=== PATIENT | female | born 1950 | race Caucasian/White ===

== ENCOUNTER 2017-02-06 21:57 | Emergency (ER) | payer SELFPAY ==
[~2017-02-06] VITALS: Wt 65.5 kg
[2017-02-07] MEDS ORDERED: hydrALAzine 20 MG INJ IV ONE
[2017-02-07 00:12] LABS: BASOPHIL # 0.1 10^3/ul (0.0-0.1); BASOPHILS % 0.5 % (0.0-2.0); EOSINOPHILS # 0.2 10^3/ul (0.0-0.5); EOSINOPHILS % 2.1 % (0.0-7.0); HEMATOCRIT 37.4 % (37.0-47.0); HEMOGLOBIN 12.5 g/dl (12.0-16.0); LYMPHOCYTES # 3.1 10^3/ul (0.8-2.9); LYMPHOCYTES % 27.5 % (15.0-51.0); MEAN CORPUSCULAR HGB CONC 33.4 g/dl (32.0-37.0); MEAN CORPUSCULAR VOLUME 98.7 fl (82.0-101.0); MEAN PLATELET VOLUME 10.2 fl (7.4-10.4); MONOCYTES % 9.2 % (0.0-11.0); NEUTROPHIL # 6.7 10^3/ul (1.6-7.5); NEUTROPHILS % 60.3 % (39.0-77.0); PLATELET COUNT 265 10^3/UL (140-415); RED BLOOD COUNT 3.79 10^6/ul (4.20-5.40); RED CELL DISTRIBUTION WIDTH 12.3 % (11.5-14.5); WHITE BLOOD COUNT 11.2 10^3/ul (4.8-10.8)
[2017-02-07 00:27] LABS: INR 0.9; PARTIAL THROMBOPLASTIN TIME 27.1 Sec (25.0-35.0); PROTIME 12.1 Sec (12.2-14.2); PT RATIO 0.9
[2017-02-07 00:53] LABS: ANION GAP 10 (8-16); BLOOD UREA NITROGEN 18 mg/dl (7-20); CALCIUM 9.4 mg/dl (8.4-10.2); CARBON DIOXIDE 30 mmol/L (21-31); CHLORIDE 100 mmol/L (97-110); CREATININE 0.78 mg/dl (0.44-1.00); GLUCOSE 98 mg/dl (70-220); POTASSIUM 3.3 mmol/L (3.5-5.1); SODIUM 137 mmol/L (135-144)
[2017-02-07] MEDS ORDERED: LABETALOL HCL 20MG INJ IV ONE (01:00)
[2017-02-07 01:09] LABS: TROPONIN-I < 0.012 ng/ml (0.00-0.12)
--- NOTE | 2017-02-07 01:26 | RADRPT ---
PROCEDURE: XR Chest. CLINICAL INDICATION: Shortness of breath. TECHNIQUE: AP Portable chest. COMPARISON: No pertinent prior examinations were submitted for comparison. FINDINGS: There is mild cardiomegaly. The lungs are clear. The osseous structures are unremarkable. IMPRESSION: No acute findings. RPTAT: HIKT .Hilario Phillips MD, MD Date Time Electronically viewed and signed by .Hilario Phillips MD, MD on 02/07/2017 01:26 .T/
--- NOTE | 2017-02-07 01:31 | RADRPT ---
PROCEDURE: CT BRAIN WITHOUT CONTRAST CLINICAL INDICATION: 66-year-old female with headaches. TECHNIQUE: The study was performed utilizing a GE Radiancepeed VCT 64-slice CT scanner. Direct axia l sections were obtained from the foramen magnum to the vertex without the use of intravenous contra st material. Sagittal and coronal reformations were obtained. One or more the following dose reduct ion techniques were utilized: automated exposure control, adjustment of the mA and/or kV according t o patient's size or use of iterative reconstruction technique. The images were viewed on a PACS SEC Watch. CTD/vol = 45.0 mGy; Total Exam DLP = 720.2 mGy-cm. COMPARISON: None. FINDINGS: The ventricles have a normal size, shape and position. There is no evidence for mass effect or midl ine shift. There are no intracranial areas of abnormal attenuation. There is no evidence for acute intra or extra-axial blood. The bony calvarium is intact. The partially visualized paranasal sinuse s and mastoid air cells are without significant abnormal soft tissue. IMPRESSION: Unremarkable noncontrast CT scan of the brain. .Bakari Sharpe MD, MD Date Time Electronically viewed and signed by .Bakari Sharpe MD, on 02/07/2017 01:30 .M/
--- NOTE | 2017-02-07 02:10 | ERD ---
ER Documentation Chief Complaint Date/Time DATE: 02/07/17 TIME: 02:09 Chief Complaint c/o high blood pressure/headache since yesterday HPI This is a 66-year-old female comes in with a high blood pressure and headache since yesterday. Blood pressures have been as high as 160 systolic. Headache is mild to moderate in intensity has been going on for the past 24 hours, waxing and waning in intensity, no exacerbating or relieving factors, no radiations. No focal neurological complaints. No visual acuity changes. No chest pain. No nausea no vomiting no fevers no chills. ROS All systems reviewed and are negative except as per history of present illness. Allergies Allergies: Coded Allergies: No Known Drug Allergies (Verified Allergy, Unknown, 02/06/17) PMhx/Soc History of Surgery: Yes (hysterectomy) Anesthesia Reaction: No Hx Neurological Disorder: No Hx Respiratory Disorders: No Hx Cardiac Disorders: Yes (HTN) Hx Psychiatric Problems: No Hx Miscellaneous Medical Probl: No Hx Alcohol Use: No Hx Substance Use: No Hx Tobacco Use: No Smoking Status: Never smoker Physical Exam Vitals Vital Signs Date Time Temp Pulse Resp B/P Pulse Ox O2 Delivery O2 Flow Rate FiO2 02/07/17 01:01 80 19 112/45 100 Room Air 02/07/17 00:13 98.7 64 16 141/69 100 Room Air 02/06/17 22:02 98.0 68 20 190/82 98 Physical Exam Const: [] Head: Atraumatic Eyes: Normal Conjunctiva ENT: Normal External Ears, Nose and Mouth. Neck: Full range of motion..~ No meningismus. Resp: Clear to auscultation bilaterally Cardio: Regular rate and rhythm, no murmurs Abd: Soft, non tender, non distended. Normal bowel sounds Skin: No petechiae or rashes Back: No midline or flank tenderness Ext: No cyanosis, or edema Neur: Awake and alert Psych: Normal Mood and Affect Result Diagram: 02/06/17 2355 02/06/17 2355 Results 24 hrs Laboratory Tests Test 02/06/17 23:55 White Blood Count 11.210^3/ul Red Blood Count 3.7910^6/ul Hemoglobin 12.5g/dl Hematocrit 37.4% Mean Corpuscular Volume 98.7fl Mean Corpuscular Hemoglobin 33.0pg Mean Corpuscular Hemoglobin Concent 33.4g/dl Red Cell Distribution Width 12.3% Platelet Count 65278^3/UL Mean Platelet Volume 10.2fl Neutrophils % 60.3% Lymphocytes % 27.5% Monocytes % 9.2% Eosinophils % 2.1% Basophils % 0.5% Nucleated Red Blood Cells % 0.0/100WBC Neutrophils # 6.710^3/ul Lymphocytes # 3.110^3/ul Monocytes # 1.010^3/ul Eosinophils # 0.210^3/ul Basophils # 0.110^3/ul Nucleated Red Blood Cells # 0.010^3/ul Prothrombin Time 12.1Sec Prothrombin Time Ratio 0.9 INR International Normalized Ratio 0.90 Activated Partial Thromboplast Time 27.1Sec Sodium Level 137mmol/L Potassium Level 3.3mmol/L Chloride Level 100mmol/L Carbon Dioxide Level 30mmol/L Anion Gap 10 Blood Urea Nitrogen 18mg/dl Creatinine 0.78mg/dl Glucose Level 98mg/dl Calcium Level 9.4mg/dl Troponin I < 0.012ng/ml Current Medications Medications (Trade) Dose Ordered Sig/Lemuel Route PRN Reason Start Time Stop Time Status Last Admin Dose Admin Hydralazine HCl (Apresoline) 20 mg ONCE ONCE IV 02/07/17 00:00 02/07/17 00:01 DC 02/07/17 00:19 Labetalol HCl (Labetalol) 10 mg ONCE ONCE IV 02/07/17 01:00 02/07/17 01:01 DC 02/07/17 00:47 Procedures/MDM EKG: Rate/Rhythm: [Normal Sinus Rhythm] QRS, ST, T-waves: [No changes consistent w/ acute ischemia] Impression: [No evidence of ischemia or arrhythmia] Chest X-ray 1V Interpreted by me: Soft Tissue: No acute abnormalities Bones: No acute abnormalities Mediastinum/Cardiac Silhouette/Lungs: No acute abnormalities Patient's neurologic symptoms have stabilized while they have been evaluated in the department and are appropriate for outpatient work up. No e/o meningitis, intracranial bleed, seizure, stroke. Departure Diagnosis: Primary Impression: Hypertension Hypertension type: essential hypertension Qualified Code: I10 - Essential hypertension Condition: Stable KIRILL PAT Feb 07, 2017 02:10
[2017-02-07] MEDS ORDERED: TRAM50TA2 PO (02:12)
[2017-02-07] MEDS ORDERED: ONDA4TAB14 PO (02:12)
[2017-02-07 02:48] VITALS: BP 130/51; PULSE 75; RESP 22; TEMP 98.3
== END 2017-02-07 02:50 | disposition home or self-care (01) ==
LOC: E/R 21:57
DX: I10 Essential (primary) hypertension (principal); R51 Headache; R07.9 Chest pain, unspecified; R40.2142 Coma scale, eyes open, spontaneous, at arrival to emergency department; R40.2252 Coma scale, best verbal response, oriented, at arrival to emergency department; R40.2362 Coma scale, best motor response, obeys commands, at arrival to emergency department
CPT/HCPCS: 36415; 70450; 71010; 80048; 84484; 85025; 85610; 85730; 93005; 96374; 96375; 99285; J0360